=== PATIENT | female | born 1945 | race Caucasian/White ===

== ENCOUNTER 2020-09-22 14:19 | Emergency (ER) | payer MEDICARE, OTHER ==
[~2020-09-22 14:19] MED LIST: ANTIVERT25 MG PO; ONDANSETRON ODT4 MG PO
[2020-09-22 16:29] LABS: BASOPHIL 0.6 % (0-2); HCT 45.3 % (37.0-47.0); HGB 14.5 g/dl (12.5-16.0); LYMPHOCYTE 17.3 % (15-48); MCH 28.4 pg (25.0-31.0); MCV 88.6 fL (78.0-100.0); MONOCYTE 7.5 % (0-12); MPV 12.1 fL (6.0-9.5); NEUTROPHIL 73.2 % (41-80); NRBC 0; PLT 168 K/uL (150-400); RBC 5.11 M/uL (4.20-5.40); RDW 13.2 % (11.5-14.0)
[2020-09-22 16:50] LABS: ALBUMIN 3.4 g/dL (3.4-5.0); BILIRUBIN - TOTAL 0.5 mg/dL (0.2-1.0); CREATININE 1.18 mg/dL (0.51-0.95); GLOBULIN (CALCULATION) 3.9 g/dL; POTASSIUM 3.9 mmol/L (3.5-5.1); TOTAL PROTEIN 7.3 g/dL (6.4-8.2)
[2020-09-22 16:52] LABS: LACTIC ACID 1.3 mmol/L (0.4-1.9)
[2020-09-22 18:08] LABS: BILIRUBIN 1+ mg/dL (NEGATIVE); BLOOD NEGATIVE Ery/uL (NEGATIVE); CLARITY CLEAR (CLEAR); COLOR YELLOW (YELLOW); GLUCOSE (U) NORMAL (NORMAL); LEUKOCYTES NEGATIVE Leu/uL (NEGATIVE); NITRITE NEGATIVE (NEGATIVE); PROTEIN TRACE (LOW) mg/dL (NEGATIVE); SPECIFIC GRAVITY 1.025 (1.001-1.030); UROBILINOGEN 0.2 mg/dL (0.2-1.0)
[2020-09-22] MEDS ORDERED: DECADRON6 MG PO (18:14)
== END 2020-09-22 20:02 | disposition home or self-care (01) ==
LOC: FER 14:19
PROVIDERS: Emergency Medicine
DX: Z23 Encounter for immunization (principal); U07.1 COVID-19; J12.82 Pneumonia due to coronavirus disease 2019; K21.9 Gastro-esophageal reflux disease without esophagitis; Z90.49 Acquired absence of other specified parts of digestive tract; Z91.041 Radiographic dye allergy status; Z88.8 Allergy status to other drugs, medicaments and biological substances
CPT/HCPCS: 36415; 36600; 71045; 80053; 81003; 82803; 83605; 84145; 85025; 87040; J1100; M0243; Q0244; U0002